=== PATIENT | female | born 1985 | race Caucasian/White ===

== ENCOUNTER 2022-11-05 11:20 | Outpatient (CLI) | payer BC, SELFPAY ==
[2022-11-05 14:39] LABS: Glucose* 94 mg/dL (60-115)
[2022-11-05 18:47] LABS: Free T4 Free Thyroxine* 0.98 ng/dL (0.70-1.85)
== END 2022-11-05 11:21 | disposition home or self-care (01) ==
LOC: FBOREF 11:20
PROVIDERS: PCP Nurse Practitioner Family; Visit Provider Nurse Practitioner Family
DX: E03.9 Hypothyroidism, unspecified (principal); Z13.1 Encounter for screening for diabetes mellitus
CPT/HCPCS: 82947; 84439; 84443

== ENCOUNTER 2023-02-07 12:00 | Outpatient (CLI) | payer BC, SELFPAY | END 2023-02-07 12:01 | disposition home or self-care (01) | PROVIDERS: PCP Nurse Practitioner Family; Visit Provider Nurse Practitioner Family | DX: E03.9 Hypothyroidism, unspecified (principal) | CPT/HCPCS: 84443 ==

== ENCOUNTER 2024-01-23 10:46 | Outpatient (CLI) | payer BC, SELFPAY | END 2024-01-23 10:47 | disposition home or self-care (01) | PROVIDERS: PCP Nurse Practitioner Family; Visit Provider Nurse Practitioner Family | DX: Z13.1 Encounter for screening for diabetes mellitus (principal); N92.0 Excessive and frequent menstruation with regular cycle; R19.00 Intra-abdominal and pelvic swelling, mass and lump, unspecified site; Z13.220 Encounter for screening for lipoid disorders; Z13.0 Encounter for screening for diseases of the blood and blood-forming organs and certain disorders involving the immune mechanism | CPT/HCPCS: 80061; 82947; 84439; 84443; 85025 ==

== ENCOUNTER 2024-02-04 14:30 | Outpatient (CLI) | payer BC, SELFPAY ==
--- NOTE | 2024-02-04 14:45 | US_ITS ---
Patient: IRAIS FRY Facility:?[facility] RIS Patient ID:?[id number] Site Patient ID:?[id number]. Site :?[id number] Study:?US-OB Pelvis TA/TV Pelvic US-02/04/2024 4:46:12 PM Ordering Physician:Sita Summers Final Report: INDICATION: Family history of ovarian malignant neoplasm. Pelvic pain, spotting COMPARISON: none TECHNIQUE: 2D germain scale and color Doppler images were acquired of the pelvis using a transabdominal and transvaginal approach. Spectral Doppler evaluation of both ovaries also performed. FINDINGS: Sonographic images demonstrate a normal size and smooth outer contour of the uterus. Uterus measures 8.9 cm in length by 4.1 cm in AP diameter by 5.7 cm in transverse dimension. The myometrium has a normal uniform echotexture. The endometrial lining appears thickened and measures 15.8 mm in composite thickness. The right ovary measures 3.8 x 2.0 x 2.8 cm in size and the left ovary measures 2.8 x 2.0 x 1.8 cm. The ovaries demonstrate normal arterial and venous blood flow on color Doppler analysis. Normal spectral Doppler evaluation of the ovaries. No torsion. Heterogeneous tissue within the left adnexa is measured on the exam at 2.5 x 0.9 x 1.9 cm. This may simply represent normal bowel. Small incidental hyperechoic cysts within each ovary. IMPRESSION: No uterine fibroid. Endometrium thickened measuring 15.8 millimeters. No endometrial fluid. Indeterminate heterogeneous tissue in the left adnexa which may simply represent normal bowel although measured on the exam. Given the history ovarian malignancy and her family, would recommend pelvic MRI for further evaluation. Dictated by Luis Rosas MD @ 02/05/2024 8:26:02 AM Signed by:?Luis Rosas MD @02/05/2024 8:26:02 AM (Electronic Signature)
== END 2024-02-04 14:31 | disposition home or self-care (01) ==
LOC: US 14:31
PROVIDERS: PCP Nurse Practitioner Family; Visit Provider Nurse Practitioner Family
DX: R10.2 Pelvic and perineal pain (principal); R93.89 Abnormal findings on diagnostic imaging of other specified body structures; N93.9 Abnormal uterine and vaginal bleeding, unspecified; Z80.41 Family history of malignant neoplasm of ovary
CPT/HCPCS: 76830; 76856; 93976

== ENCOUNTER 2024-03-19 10:20 | Outpatient (CLI) | payer BC, SELFPAY | END 2024-03-19 10:21 | disposition home or self-care (01) | LOC: KYNREF 12:02 | PROVIDERS: PCP Nurse Practitioner Family; Visit Provider Nurse Practitioner Family | DX: E03.9 Hypothyroidism, unspecified (principal) | CPT/HCPCS: 84443 ==

== ENCOUNTER 2024-05-05 13:45 | Outpatient (CLI) | payer BC, SELFPAY ==
--- NOTE | 2024-05-05 14:00 | CRLHL7_ITS ---
For Patients: As a result of the Century Cures Act, medical imaging exams and procedure reports are released immediately into your electronic medical record. You may view this report before your referring provider. If you have questions, please contact your health care provider. BILATERAL SCREENING MAMMOGRAM WITH COMPUTER-AIDED DETECTION AND TOMOSYNTHESIS TECHNIQUE: CC and MLO views were obtained. These mammographic images have been obtained using full-field digital technique. These mammographic images were interpreted with the benefit of computer-aided detection. Breast tomosynthesis was used in this interpretation. COMPARISON FILM: None. This is a baseline study. FINDINGS: The breasts are heterogeneously dense, which may obscure small masses. IMPRESSION: There is no radiographic evidence for malignancy. ASSESSMENT: BI-RADS Category 1: Negative RECOMMENDATION: Routine screening mammogram in 1 year. A lay language report of this examination will be provided to the patient. LUIS SHAH M.D. Diagnostic Radiologist [email or web address] Transcribed: 2:[address]/Dictated by: Luis Shah MD @ 05/06/2024 9:25:00 AM (Electronically Signed)
== END 2024-05-05 13:46 | disposition home or self-care (01) ==
LOC: MAMMO 13:46
PROVIDERS: PCP Nurse Practitioner Family; Visit Provider Nurse Practitioner Family
DX: Z12.31 Encounter for screening mammogram for malignant neoplasm of breast (principal); R92.2 Inconclusive mammogram
CPT/HCPCS: 77063; 77067

== ENCOUNTER 2025-09-23 11:04 | Outpatient (CLI) | payer OTHER, SELFPAY | END 2025-09-23 11:05 | disposition home or self-care (01) | PROVIDERS: PCP Nurse Practitioner Family; Visit Provider Nurse Practitioner Family | DX: Z00.00 Encounter for general adult medical examination without abnormal findings (principal); E03.9 Hypothyroidism, unspecified; Z13.6 Encounter for screening for cardiovascular disorders | CPT/HCPCS: 80061; 84439; 84443 ==